=== PATIENT | female | born 1950 | race African-American/Black ===

== ENCOUNTER 2021-06-13 00:25 | Day surgery (SDC) | payer MEDICARE, SELFPAY ==
[2021-05-03 14:13] VITALS: BMI 26.2
--- NOTE | 2021-06-12 10:53 | P.PNAN_ITS ---
Anes - Eval Pre Procedure Procedure: Operation Date: 06/13/21 12:30 Proposed Procedures p Screening Colonoscopy - Luis Araya MD Date/Time: 06/12/21 10:53 Surgeon: Marshal Pre Op Diagnosis: Fam Hx of Colon polyps Patient Data Age: 71 Gender: F Height: 1.6 m Weight: 67 kg Allergies Allergy/AdvReac Type Severity Reaction Status Date / Time No Known Allergies Allergy Verified 05/03/21 14:14 Home Medications Medication Instructions Recorded Confirmed Type cyclobenzaprine 10 mg PO TID PRN 02/09/19 05/03/21 History gabapentin 300 mg capsule 300 mg PO BID 12/21/20 05/03/21 History hydrocortisone 2.5 % topical cream 1 applic TOPICAL BID PRN 12/21/20 05/03/21 H istory omeprazole 40 mg capsule,delayed 40 mg PO DAILY 12/21/20 05/03/21 History release rosuvastatin 40 mg tablet 40 mg PO DAILY 12/21/20 05/03/21 History Patient hx anesthesia problems: none Family hx anesthesia problems: none Results Review: All pre-operative results and documents have been reviewed as part of the pre-operative evaluation. [facility] Past Medical History Medical History Gastric ulcer GERD (gastroesophageal reflux disease) Hemorrhoids Hyperlipidemia Sciatica rt side Surgical History Surgical History History of hysterectomy History of tubal ligation Hx of colonoscopy Family History Family History Father Hypertension Sibling Diabetes mellitus Other Thyroid disorder Social History Social History Smoking packs per day: 1.5 Smoking cigarettes per day: 30.0 Years smoked: 10 Smoking pack-years: 15.00 Smoking status: Former smoker Tobacco type: cigarettes Alcohol intake: current Alcohol use details: rarely Substance use: never Substance use type: does not use Living arrangements: alone Exam Day of Procedure 06/12/21 10:53
[2021-06-13 11:11] VITALS: BP 148/73; PULSE 107; RESP 16; TEMP 36.2; O2SAT 98
[2021-06-13] MEDS: LACTATED RINGERS 1,000 ML 150 ML IV CONT (11:20)
--- NOTE | 2021-06-13 11:22 | WPDANESEFPP ---
Anes - Eval Final PreProcedure Day of Procedure 06/13/21 11:22 Patient weight: overweight Heart: regular rate and rhythm Lungs: clear to auscultation and normal air movement Airway: Mallampati scale class II Neurological: alert and oriented Last oral intake: >/= 8 hours ASA classification: II Emergent: no Anesthetic plan: proceed Anesthesia type and monitoring: general GIVS and standard monitoring Results Review: All pre-operative results and documents have been reviewed as part of the pre-operative evaluation. Informed Consent: The patient's anesthetic plan and its attendant risks and benefits were discussed with the patient/family/POA. Questions were solicited and answers provided to the satisfaction of the patient/family/POA.
--- NOTE | 2021-06-13 11:37 | PM.HPGS ---
History of Present Illness History of Present Illness Consent: Risks, benefits, and alternatives have been discussed and questions answered. Patient agrees to proceed with procedure. Chief complaint: Fam Hx of Colon polyps Narrative: Shannan Figueora is a 71 year old female Referred for colon cancer screening. He does have a family history of polyps Review of Systems Review of Systems: All systems reviewed & are unremarkable except as noted in HPI and below PMFSH Past Medical History Medical History Gastric ulcer GERD (gastroesophageal reflux disease) Hemorrhoids Hyperlipidemia Sciatica rt side Surgical History Surgical History History of hysterectomy History of tubal ligation Hx of colonoscopy Family History Family History Father Hypertension Sibling Diabetes mellitus Other Thyroid disorder Social History Social History Smoking packs per day: 1.5 Smoking cigarettes per day: 30.0 Years smoked: 10 Smoking pack-years: 15.00 Smoking status: Former smoker Tobacco type: cigarettes Alcohol intake: current Alcohol use details: rarely Substance use: never Substance use type: does not use Living arrangements: alone Meds Home Medications and Allergies Home Medications Medication Instructions Recorded Confirmed Type cyclobenzaprine 10 mg PO TID PRN 02/09/19 05/03/21 History gabapentin 300 mg capsule 300 mg PO BID 12/21/20 05/03/21 History hydrocortisone 2.5 % topical cream 1 applic TOPICAL BID PRN 12/21/20 05/03/21 History omeprazole 40 mg capsule,delayed 40 mg PO DAILY 12/21/20 05/03/21 History release rosuvastatin 40 mg tablet 40 mg PO DAILY 12/21/20 05/03/21 History Allergies Allergy/AdvReac Type Severity Reaction Status Date / Time No Known Allergies Allergy Verified 06/13/21 11:07 Vital Signs Vital Signs - 24 hr 06/13/21 11:11 Temperature 36.2 C L Pulse Rate 107 H Respiratory Rate 16 Blood Pressure 148/73 H Pulse Oximetry 98 Exam Resp: Auscultation: clear to auscultation bilaterally Cardio: Rate: regular rate Rhythm: regular rhythm GI: GI Palp: Yes Soft to palpation and No Tenderness to palpation present (GI) Assessment and Plan Assessment and plan (1) Family history of colonic polyps: Code(s): Z83.71 - Family history of colonic polyps Status: Acute Assessment and Plan: Colonoscopy with possible biopsy or polypectomy or cautery or injection of substances.
[2021-06-13 12:11] VITALS: BP 118/68; PULSE 75; RESP 14; O2SAT 98
[2021-06-13 12:21] VITALS: BP 136/74; PULSE 79; RESP 24; O2SAT 100
[2021-06-13 12:31] VITALS: BP 138/77; PULSE 77; RESP 18; O2SAT 100
== END 2021-06-13 12:44 | disposition home or self-care (01) ==
PROVIDERS: PCP Family Medicine; Visit Provider Internal Medicine Gastroenterology
PROC: 0DJD8ZZ Inspection of Lower Intestinal Tract, Via Natural or Artificial Opening Endoscopic (ICD-10-PCS; CPT 45378; principal; 2021-06-13 12:30)
DX: Z12.11 Encounter for screening for malignant neoplasm of colon (principal); Z83.71 Family history of colonic polyps; K57.30 Diverticulosis of large intestine without perforation or abscess without bleeding; Z87.11 Personal history of peptic ulcer disease; E78.5 Hyperlipidemia, unspecified; M54.31 Sciatica, right side; Z87.891 Personal history of nicotine dependence
CPT/HCPCS: G0105; J2704; J7120

== ENCOUNTER 2024-09-09 10:34 | Outpatient (CLI) | payer MEDICARE, SELFPAY ==
--- NOTE | ~2024-09-09 | DEXA_ITS ---
Bone Density Report Name: BEE ZARAGOZA Age: 74 Sex: Female Ethnicity: Black Date of : 1950 Indication: postmenopausal; screening for osteoporosis; hysterectomy; Referring Provider: LOGAN HERNANDEZ Study: Bone densitometry was performed. Exam Date: September 09, 2024 Accession number: [id number] Bone Density: Region BMD T-score Z-score Classification AP Spine(L1-L4) 0.984 -0.6 1.2 Normal Femoral Neck (Left) 0.624 -2.0 -0.7 Osteopenia Total Hip (Left) 0.883 -0.5 0.4 Normal Femoral Neck (Right) 0.611 -2.1 -0.8 Osteopenia Total Hip (Right) 0.758 -1.5 -0.4 Osteopenia Total Hip Mean 0.820 -1.0 0.0 Normal World Health Organization criteria for BMD impression classify patients as: Normal (T-score at or above -1.0), Osteopenia (T-score between -1.0 and -2.5), or Osteoporosis (T-score at or below -2.5). 10-year Fracture Risk(1): Major Osteoporotic Fracture 6.7% Hip Fracture 1.8% Reported Risk Factors: [place] ([place]), Neck BMD=0.611, BMI=27.1 (1) FRAX(R) Version 3.08. Fracture probability calculated for an untreated patient. Fracture probability may be lower if the patient has received treatment. Clinical Information Provided by Patient: Has used the following medications: Vitamin D, Calcium Has the following medical conditions: Hysterectomy Patient maximum height was 63 Menopause Age: 48 Drinks caffeinated beverages Onset of menses at age 10 Number of children 4 Impression: The patient has low bone mass, based on the Right Femoral Neck T-score. The patient has an estimated ten-year risk of hip fracture of 1.8% and an estimated ten-year risk of major fracture of 6.7%, based on the WHO FRAX algorithm. Discussion: BONE DENSITY IS LOW AT ONE OR MORE SKELETAL SITES. This patient's lowest T-score is low at one or more skeletal sites. It meets the World Health Organization's (WHO) criteria for ?low bone mass? (T-score between -1.0 and -2.5). The patient's 10-year risk of fracture as calculated by FRAX is less than the threshold where pharmacological therapy is recommended by the National Osteoporosis Foundation (NOF). However, all treatment decisions require clinical judgment and consideration of individual patient factors, including patient preferences, comorbidities, previous drug use, risk factors not captured in the FRAX model (e.g., frailty, falls, vitamin D deficiency, increased bone turnover, interval significant decline in bone density) and possible under or overestimation of fracture risk by FRAX. The patient should follow a healthful lifestyle (good nutrition with adequate calcium and vitamin D, and appropriate weight-bearing exercise). Follow-Up: Consider repeating this study in 2 to 3 years to reassess this patient's status, or sooner if there is some new clinical indication. Reported by: SKYLER on 09/09/2024 11:09:00 AM. Reviewed, dictated and finalized at location A.
--- OUTSIDE RECORDS SUMMARY | 2024-09-09 10:57 | XMS_ITS | Referral Summary ---
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
--- OUTSIDE RECORDS SUMMARY | 2024-09-09 10:57 | XMS_ITS | Clinical Summary ---
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
--- OUTSIDE RECORDS SUMMARY | 2024-09-09 10:57 | XMS_ITS | Continuity of Care Document ---
Author Organization [facility] Address [address] [place] [address] Phone Care Team Providers Care [place] Program Coordinator Name Role Phone Metz OD, Rory Unavailable Unavailable Advance Directives Directive Yes / No Effective Date File Name No Information Encounters Encounter Description Practice Location Reason(s) For Visit Diagnoses Date Provider Providers Copied on Encounter [facility], [address], [place], [place], [id number], [place] tel:[phone] [facility] [place] No Information Sep-2 0-200 6 Metz OD Rory. [address] [facility] , [address], [place], [address], [place]. tel:[phone] Family History Family Member Type Diagnosis Age At Onset No Information Payers Payer name Insurance type Covered republican ID Tello foster(s) [facility] CI [id number] Social History Type Description Quantity Date Captured Comments Sex Female Smoking Status No Information Chief Complaint And Reason For Visit No Information Reason For Referral Reason For Referral No Information History Of Present Illness Encounter Date Complaint History Of Prese nt Illness No Information Functional Status Date Functional Assessmen t No Information Instructions Date Instruction Additional Infor mation No Information Assessments Type Assessment Date No Information Patient Care Teams Name Effective Dates (start - stop) Status Members No Information
== END 2024-09-09 10:35 | disposition home or self-care (01) ==
PROVIDERS: PCP Family Medicine; Visit Provider Family Medicine
DX: M85.89 Other specified disorders of bone density and structure, multiple sites (principal); Z78.0 Asymptomatic menopausal state
CPT/HCPCS: 77080

== ENCOUNTER 2025-03-03 13:48 | Outpatient (CLI) | payer MEDICARE, SELFPAY ==
--- NOTE | ~2025-03-03 | MM_ITS ---
EXAMINATION: MM screening [place] BI w deann HISTORY: Screening TECHNIQUE: Craniocaudal and mediolateral oblique 3-D tomosynthesis images were obtained and synthetic 2-D images were generated. CAD analysis was submitted and interpreted. COMPARISON: No prior mammogram is available for comparison at this institution. BREAST PARENCHYMAL COMPOSITION: Not dense: There are scattered areas of fibroglandular density. FINDINGS: There is no evidence of suspicious mass, calcification, or architectural distortion to suggest malignancy in either breast. There has been no suspicious interval change. IMPRESSION: 1. No mammographic evidence of malignancy. 2. Recommend routine screening mammography in one year. BI-RADS Category 1: Negative Reviewed, dictated and finalized at location O. 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
== END 2025-03-03 13:49 | disposition home or self-care (01) ==
LOC: MICIMG 13:49
PROVIDERS: PCP Family Medicine Adolescent Medicine; Visit Provider Family Medicine Adolescent Medicine
DX: Z12.31 Encounter for screening mammogram for malignant neoplasm of breast (principal)
CPT/HCPCS: 77063; 77067